=== PATIENT | male | born 1965 | race Two or more races ===

== ENCOUNTER 2024-02-01 15:10 | Inpatient (IN) | payer OTHER ==
[~2024-02-01] VITALS: Ht 180.3 cm; Wt 16.6 kg
--- NOTE | 2024-02-01 16:25 | ED.PDOC ---
SOB-HPI HPI Comments HPI: Poor Historian. 58-year-old male presents to emergency department for multiple complaints unclear. He had an episode of chest pain and shortness of breath this morning that has resolved prior to my evaluation. He also states he has been having nausea and vomiting and brown diarrhea for the last six days. 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 He states that he was dropped off by the staff from that facility for further evaluation. He states that he was first seen at urgent care today and was given loratadine and Tylenol and fluids and was discharged home. After patient's picked up his medication he started feeling some chest pain and shortness of breath and that is why he came to the ER. Patient does not know his past medical history or past surgical history. Contain denies any chest pain or shortness of breath with The patient stated that he had a stroke, I reviewed some of the medical chart he had from [facility] with the hospital where he had CT scans and MRIs to rule out stroke and there was no CVA confirmed on the reports. Patient is seen ambulating independently numerous times in the lobby without any assistance or abnormal gait. Later the patient mentioned that he has been having unsteady gait on his left side that is making him fall frequently in the last week. Initial Vital Signs: Temp : 99.2 F BP: 137/75 HR: 85 RR: 16 SpO2: 95% Past Medcial History: [place]roke, [place], possibly congestive heart failure, patient is on some type of blood thinners. Seizure chronic left-sided numbness and tingling Past Surgical History: REVIEW OF SYSTEMS: CONSTITUTIONAL: Denies acute: fever, diaphoresis, chills, HEAD: Denies acute: headache, photophobia Eyes: Denies acute: Double vision, vision loss, eye pain, eye discharge. EARS: Denies acute: tinnitus, hearing loss, ear discharge, ear pain, THROAT: Denies acute: sore throat, swelling, difficulty swallowing , pain with swallowing, change in voice. NECK: Denies acute: neck pain, neck swelling, stiff neck. HEART: Denies acute : chest pain, palpitations, LUNGS: Denies acute: SOB, wheezing, cough, hemoptysis ABDOMEN: Denies acute: abdominal pain, melena , hematemesis, SKIN: Denies acute: rash, redness, lesions, itchiness. EXTREMITIES: Denies acute: calf pain, numbness, tingling, weakness, denies pain in extremity. Denies acute: Low back pain. Neuro: Denies acute: focal neurological deficit, motor or sensory focal neurological deficit, tremors, seizure like activity, confusion, dizziness, change in mental status, loss of bowel or bladder function, cauda equina like symptoms. : Denies acute: dysuria, hematuria, flank pain, increase in urinary frequency. PSYCH: Denies acute: hallucination, suicidal ideation, homicidal ideation. PHYSICAL EXAM: General: no acute distress, awake and alert. Head: normocephalic, atraumatic. Neck: supple, trachea is midline, no swelling. Throat: Normal phonation. Eyes:, no erythema, no purulent discharge, no proptosis, no icterus. Heart: regular rate, regular rhythm, no significant murmur appreciated. Lungs: no apparent respiratory distress, Able to speak in full sentences. No wheezing, no rhonchi, no crackles. No stridors Clear to auscultation bilaterally. Abdomen: non tender to palpation, non distended, soft, no guarding, no rebound, + bowel sounds. Neuro: Awake, Alert, oriented to name, self, situation, follows commands GCS=15. Speech is normal. Skin: no petechia, no purpura, no cyanosis, non-pale, not jaundice. Lower extremities: --no - Pitting edema no deformity, no focal swelling, no calf TTP. Makes eye contact. moves all four extremities. Face: no apparent facial droop. Ambulating in the ED independently. Time Seen by MD: 15:37 Reviewed notes: Nurses Notes, Medications, Allergies Information Source: Patient X-Ray, Labs, Meds, VS Vital Signs Date Time Temp Pulse Resp B/P (MAP) Pulse Ox O2 Delivery O2 Flow Rate FiO2 02/01/24 16:46 99.2 85 16 137/75 (95) 95 Lab Test 02/01/24 19:00 02/01/24 17:53 02/01/24 16:56 Range/Units Troponin I High Sensitivity 44 41 44 </=54 ng/L Lactic Acid Level 1.9 0.4-2.0 mmol/L White Blood Count 4.0 L 4.4-10.8 10^3/uL Red Blood Count 4.38 L 4.5-5.90 10^6/uL Hemoglobin 13.9 13.5-17.5 g/dL Hematocrit 41.1 41.0-53.0 % Mean Corpuscular Volume 93.9 80.0-100.0 fL Mean Corpuscular Hemoglobin 31.7 28.0-32.0 pg Mean Corpuscular Hemoglobin Concent 33.8 32.0-36.0 g/dL Red Cell Distribution Width 13.4 11.8-14.3 % Platelet Count 153 140-450 10^3/uL Mean Platelet Volume 10.4 6.9-10.8 fL Neutrophils (%) (Auto) 66.6 37.0-80.0 % Lymphocytes (%) (Auto) 18.3 10.0-50.0 % Monocytes (%) (Auto) 13.6 H 0.0-12.0 % Eosinophils (%) (Auto) 0.7 0.0-7.0 % Basophils (%) (Auto) 0.8 0.0-2.0 % Neutrophils # (Auto) 2.7 1.6-8.6 10 ^3/uL Lymphocytes # (Auto) 0.7 0.4-5.4 10 ^3/uL Monocytes # (Auto) 0.5 0-1.3 10 ^3/uL Eosinophils # (Auto) 0 0-0.8 10 ^3/uL Basophils # (Auto) 0 0-0.2 10 ^3/uL Nucleated Red Blood Cells 0.1 % Sodium Level 138 136-145 mmol/L Potassium Level 3.5 3.5-5.1 mmol/L Chloride Level 104 98-107 mmol/L Carbon Dioxide Level 26 20-31 mmol/L Anion Gap 8 5-15 Blood Urea Nitrogen 25 H 9-23 mg/dL Creatinine 1.30 0.700-1.30 mg/dL Glomerular Filtration Rate Calc 64 >90 mL/min BUN/Creatinine Ratio 19.2 10.0-20.0 Serum Glucose 89 74-106 mg/dL Calcium Level 9.5 8.7-10.4 mg/dL Magnesium Level 1.7 1.6-2.6 mg/dL Total Bilirubin 0.4 0.2-1.0 mg/dL Aspartate Amino Transferase (AST) 52 H 13-40 U/L Alanine Aminotransferase (ALT) 28 7-40 U/L Alkaline Phosphatase 90 46-116 U/L B-Type Natriuretic Peptide 98.10 0-100 pg/mL Total Protein 7.0 5.7-8.2 g/dL Albumin 4.5 3.2-4.8 g/dL Lipase 70 H 12-53 U/L Plasma/Serum Blood Alcohol < 3.0 <10 mg/dL [place] [id number] Ph: [phone] DIAGNOSTIC IMAGING Diagnostic Imaging Report : [id number] Signed PATIENT: DAGMAR DEL CID ACCT: [id number] UNIT: [id number] : 1965 LOC: ER ROOM / BED: / AGE / SEX: 58 / M ADM STATUS: REG ER SERVICE 1609 ORDERING PHYSICIAN: CHETAN FULTON DO PROCEDURE(s): CXRP - CHEST PORTABLE REASON: sob ORDER NUMBER(s): [id number], ACCESSION NUMBER(s): [id number] CHEST RADIOGRAPH Indication: sob Technique: Single frontal view of the chest was obtained Comparison: None FINDINGS: Lines and Tubes: None Lungs: No focal consolidation. Pleura: No effusion. No pneumothorax. Cardiomediastinal contours: Unremarkable Bones: No acute osseous abnormality. IMPRESSION: No acute cardiopulmonary disease. ATED BY: BINH RAMSAY MD DICTATED DATE/TIME: 02/01/241742 SIGNED BY: BINH RAMSAY MD SIGNED DATE/TIME: 02/01/241742 CC: [place] [id number] Ph: [phone] DIAGNOSTIC IMAGING Diagnostic Imaging Report : [id number] Signed PATIENT: DAGMAR DEL CID ACCT: [id number] UNIT: [id number] : 1965 LOC: ER ROOM / BED: / AGE / SEX: 58 / M ADM STATUS: REG ER SERVICE 1618 ORDERING PHYSICIAN: CHETAN FULTON DO PROCEDURE(s): ABPL - CT AB PEL WO CON-NO ORAL OR IV REASON: n/v ORDER NUMBER(s): [id number], ACCESSION NUMBER(s): [id number] Exam: CT CT AB PEL WO CON-NO ORAL OR IV History: n/v Comparison Study: None TECHNIQUE: Multidetector CT of the abdomen and pelvis was performed from lung bases to pubic symphysis. Imaging was performed without IV contrast. Axial, coronal, and sagittal multiplanar reformats were obtained from the axial data set by the technologist. RADIATION DOSE: DLP 1136.2 mGy.cm; CTDI vol 20.83 mGy. Findings: Limited evaluation given noncontrast technique. Lungs: The lung bases are clear. Heart: Cardiomegaly. Liver: Unremarkable. Gallbladder: Unremarkable. Spleen: Unremarkable Pancreas: Unremarkable Adrenals: Unremarkable Kidneys: Right renal cysts. GI tract: Unremarkable. Normal appendix. : Unremarkable. Vasculature: Unremarkable Lymphadenopathy: Absent Peritoneum: No ascites Musculoskeletal: Moderate multilevel degenerative changes of the thoracolumbar spine Soft tissues: Unremarkable Impression: 1. Limited evaluation given noncontrast technique. 2. No acute abdominopelvic abnormalities. 3. Cardiomegaly. ATED BY: CINTHIA NEWBY DO DICTATED DATE/TIME: 02/01/241748 SIGNED BY: CINTHIA NEWBY DO SIGNED DATE/TIME: 02/01/241748 CC: [place] [id number] Ph: [phone] DIAGNOSTIC IMAGING Diagnostic Imaging Report : [id number] Signed PATIENT: DAGMAR DEL CID ACCT: [id number] UNIT: [id number] : 1965 LOC: ER ROOM / BED: / AGE / SEX: 58 / M ADM STATUS: REG ER SERVICE 1636 ORDERING PHYSICIAN: CHETAN FULTON DO PROCEDURE(s): HWOCT - HEAD WITHOUT CONTRAST REASON: confused ORDER NUMBER(s): [id number], ACCESSION NUMBER(s): [id number] EXAM: CT HEAD WITHOUT CONTRAST INDICATION: confused TECHNIQUE: CT of the head without intravenous contrast. Radiation Dose Information: CT Dose: CTDI volume is 57.77 mGy. Dose-length product is 1022.89 mGy*cm The dose indicators for CT are the volume Computed Tomography (CT) Dose Index (CTDIvol) and the Dose Length Product (DLP), and are measured in units of mGy and mGy-cm, respectively. These indicators are not patient dose, but values generated from the CT scanner acquisition factors. The report includes radiation exposure data for exposures received during this examination. COMPARISON: None FINDINGS: There is no evidence of acute intracranial hemorrhage, extra-axial collection, mass effect, midline shift, herniation or hydrocephalus. The ventricles, sulci and cisterns are age appropriate. The maxwell-white differentiation is intact. Patchy periventricular and subcortical white matter hypoattenuation is nonspecific but may be related to small vessel ischemic disease. Encephalomalacia right frontal lobe and left parietal lobe. The visualized paranasal sinuses and mastoid air cells are clear. The surrounding soft tissues and osseous structures are unremarkable. IMPRESSION: No acute intracranial abnormality. ATED BY: BINH RAMSAY MD DICTATED DATE/TIME: 02/01/241742 SIGNED BY: BINH RAMSAY MD SIGNED DATE/TIME: 02/01/241742 CC: Time of 1ST Reevaluation: 19:39 (We have received multiple conflicting reports regarding the history of present illness and ER presentation. Still awaiting social worker aide for evaluation and placement. Patient is sitting in the lobby tolerating food intake well. No acute distress.) Reevaluation 1ST: Improved Time of 2ND Reevaluation: 22:19 (The charge nurse Mata communicated in length with the housekeeping manager Christian regarding this patient and verified this patient is either confused or malingering. The information in the note that accompanied him is falls. aircraft worker was consulted for placement and evaluation and possibly psychiatric evaluation. Patient denies any homicidal or suicidal ideation or hallucinations. Patient is resting comfortably in the lobby ambulating independently tolerating p.o. intake. Patient in no acute distress.) Patient Education/Counseling: Diagnosis, Treatment Family Education/Counseling: No Family Present Assigned to Change of Shift?: Yes Departure 1 Departure Time of Disposition: 18:00 Impression: Primary Impression: Homelessness Additional Impressions: Multiple complaints Confusion Unsteady gait Diarrhea Disposition: ADMITTED INPATIENT Admit to: Tele Condition: Guarded Discharged With: Self I personally scribed for CHETAN FULTON DO ([email or web address]) on 02/01/24 at 19:08. Electronically submitted by Pia Davila ([email or web address]). I personally scribed for CHETAN FULTON DO ([email or web address]) on 02/01/24 at 19:11. Electronically submitted by Pia Davila ([email or web address]). I personally scribed for CHETAN FULTON DO ([email or web address]) on 02/01/24 at 20:42. Electronically submitted by Pia Davila ([email or web address]). I personally scribed for CHETAN FULTON DO ([email or web address]) on 02/01/24 at 21:06. Electronically submitted by Pia Davila ([email or web address]). CHETAN FULTON DO Feb 01, 2024 16:25
[2024-02-01 17:19] LABS: Basophils # (auto) 0 10 ^3/uL (0-0.2); Basophils % (auto) 0.8 % (0.0-2.0); Eosinophils # (auto) 0 10 ^3/uL (0-0.8); Eosinophils % (auto) 0.7 % (0.0-7.0); Hematocrit 41.1 % (41.0-53.0); Hemoglobin 13.9 g/dL (13.5-17.5); Lymphocytes # (auto) 0.7 10 ^3/uL (0.4-5.4); Lymphocytes % (auto) 18.3 % (10.0-50.0); Mean Corpuscular Hemoglobin 31.7 pg (28.0-32.0); Mean Corpuscular Hgb Conc. 33.8 g/dL (32.0-36.0); Mean Corpuscular Volume 93.9 fL (80.0-100.0); Monocytes # (auto) 0.5 10 ^3/uL (0-1.3); Monocytes % (auto) 13.6 % (0.0-12.0); Neutrophils # (auto) 2.7 10 ^3/uL (1.6-8.6); Neutrophils % (auto) 66.6 % (37.0-80.0); Nucleated Red Blood Cells % 0.1 %; Platelet Count (auto) 153 10^3/uL (140-450); Red Blood Cells 4.38 10^6/uL (4.5-5.90); Red Cell Distribution Width 13.4 % (11.8-14.3)
[2024-02-01 17:37] LABS: Alanine Aminotransferase 28 U/L (7-40); Albumin 4.5 g/dL (3.2-4.8); Alkaline Phosphatase 90 U/L (46-116); Anion Gap 8 (5-15); BUN/Creatinine Ratio 19.2 (10.0-20.0); Bilirubin, Total 0.4 mg/dL (0.2-1.0); Calcium 9.5 mg/dL (8.7-10.4); Carbon Dioxide 26 mmol/L (20-31); Chloride 104 mmol/L (98-107); Glucose 89 mg/dL (74-106); Potassium 3.5 mmol/L (3.5-5.1); Sodium 138 mmol/L (136-145)
--- NOTE | 2024-02-01 17:45 | DVH ---
CHEST RADIOGRAPH Indication: sob Technique: Single frontal view of the chest was obtained Comparison: None FINDINGS: Lines and Tubes: None Lungs: No focal consolidation. Pleura: No effusion. No pneumothorax. Cardiomediastinal contours: Unremarkable Bones: No acute osseous abnormality. IMPRESSION: No acute cardiopulmonary disease.
[2024-02-01 17:46] LABS: Magnesium 1.7 mg/dL (1.6-2.6)
--- NOTE | 2024-02-01 17:46 | DVH ---
EXAM: CT HEAD WITHOUT CONTRAST INDICATION: confused TECHNIQUE: CT of the head without intravenous contrast. Radiation Dose Information: CT Dose: CTDI volume is 57.77 mGy. Dose-length product is 1022.89 mGy*cm The dose indicators for CT are the volume Computed Tomography (CT) Dose Index (CTDIvol) and the Dose Length Product (DLP), and are measured in units of mGy and mGy-cm, respectively. These indicators are not patient dose, but values generated from the CT scanner acquisition factors. The report includes radiation exposure data for exposures received during this examination. COMPARISON: None FINDINGS: There is no evidence of acute intracranial hemorrhage, extra-axial collection, mass effect, midline s hift, herniation or hydrocephalus. The ventricles, sulci and cisterns are age appropriate. The maxwell-white differentiation is intact. Patchy periventricular and subcortical white matter hypoattenuation is nonspecific but may be related to small vessel ischemic disease. Encephalomalacia right frontal lobe and left parietal lobe. The visualized paranasal sinuses and mastoid air cells are clear. The surrounding soft tissues and osseous structures are unremarkable. IMPRESSION: No acute intracranial abnormality.
[2024-02-01 17:49] LABS: Aspartate Aminotransferase 52 U/L (13-40); Blood Alcohol < 3.0 mg/dL (<10); Blood Urea Nitrogen 25 mg/dL (9-23)
--- NOTE | 2024-02-01 17:52 | DVH ---
Exam: CT CT AB PEL WO CON-NO ORAL OR IV History: n/v Comparison Study: None TECHNIQUE: Multidetector CT of the abdomen and pelvis was performed from lung bases to pubic symphysi s. Imaging was performed without IV contrast. Axial, coronal, and sagittal multiplanar reformats were obtained from the axial data set by the technologist. RADIATION DOSE: DLP 1136.2 mGy.cm; CTDI vol 20.83 mGy. Findings: Limited evaluation given noncontrast technique. Lungs: The lung bases are clear. Heart: Cardiomegaly. Liver: Unremarkable. Gallbladder: Unremarkable. Spleen: Unremarkable Pancreas: Unremarkable Adrenals: Unremarkable Kidneys: Right renal cysts. GI tract: Unremarkable. Normal appendix. : Unremarkable. Vasculature: Unremarkable Lymphadenopathy: Absent Peritoneum: No ascites Musculoskeletal: Moderate multilevel degenerative changes of the thoracolumbar spine Soft tissues: Unremarkable Impression: 1. Limited evaluation given noncontrast technique. 2. No acute abdominopelvic abnormalities. 3. Cardiomegaly.
[2024-02-01 18:32] LABS: Lipase 70 U/L (12-53)
[2024-02-01 22:58] LABS: Urine Bacteria None Seen /hpf (None Seen)
[2024-02-01 23:10] LABS: Urine Blood Negative /uL (Negative); Urine Clarity Clear (Clear); Urine Color Yellow (Yellow); Urine Mucus FEW (None Seen); Urine Protein, UAD 1+ (Negative); Urine Specific Gravity 1.031 (1.001-1.035); Urine Squamous Epithelial Cell None Seen /hpf (<5); Urine Urobilinogen 2 mg/dL (Negative); Urine WBC 2 /hpf (0 - 3); Urine pH 5.5 (5.0-9.0)
[2024-02-01 23:19] LABS: Cannabinoid Screen, Urine Pos (NEGATIVE)
[2024-02-01 23:20] LABS: Amphetamine Screen, Urine Neg (NEGATIVE); Barbiturate Scree,Urine Neg (NEGATIVE); Benzodiazephine Screen, Urine Neg (NEGATIVE); Cocaine Screen, Urine Neg (NEGATIVE); Opiate Scree,Urine Neg (NEGATIVE); Phencyclidine Screen, Urine Neg (NEGATIVE)
[2024-02-01 23:25] LABS: COVID19 ANTIGEN SOFIA FIA NEGATIVE (NEGATIVE)
[2024-02-01 23:27] LABS: Rapid Influenza A Positive (Negative); Rapid Influenza B Negative (Negative)
[2024-02-02 06:46] VITALS: PULSE 76; RESP 16; O2SAT 96
[2024-02-02] MEDS ORDERED: MORPHINE SULFATE INJ 2 MG/ml SYRG IV PRN (07:45)
[2024-02-02] MEDS ORDERED: ONDANSETRON HCL 4 MG/2 ML VIAL IV PRN (07:45)
--- NOTE | 2024-02-02 07:55 | DVHHP2 ---
History of Present Illness History of Present Illness 58yo M with PMHx HFrEF, homelessness p/w diarrhea x 4-5 days. poor historian, visited [facility] urgent care for similar complaint, was dc with imodium and tylenol. returning to ED with ongoing complains and ROS for weakness. patient is homeless. Review of Systems Review of Systems per HPI Allergies: Coded Allergies: No Known Drug Allergy (Verified Allergy, Unknown, 02/01/24) Medications Current Medications Medications Dose Ordered Sig/Marleny Route Start Time Stop Time Status Last Admin Dose Admin Acetaminophen/ Hydrocodone Bitart 1 tab Q4HP PRN PO 02/02/24 07:45 UNV Ondansetron HCl 4 mg Q4HP PRN IV 02/02/24 07:45 UNV Enoxaparin Sodium 40 mg DAILY SC 02/02/24 10:00 UNV Acetaminophen 650 mg Q6HP PRN PO 02/02/24 07:45 UNV Morphine Sulfate 2 mg Q4HPRN PRN IV 02/02/24 07:45 UNV Apixaban 5 mg BID PO 02/02/24 10:00 UNV Midodrine 10 mg TID@0600,1200,1800 PO 02/02/24 12:00 UNV Pantoprazole Sodium 40 mg DAILY@0600 PO 02/03/24 06:00 UNV Sacubitril/ Valsartan 2 tab BID PO 02/02/24 10:00 UNV Spironolactone 25 mg DAILY PO 02/02/24 10:00 UNV Exam Vital Signs Vital Signs Date Time Temp Pulse Resp B/P (MAP) Pulse Ox O2 Delivery O2 Flow Rate FiO2 02/02/24 06:46 76 16 96 Room Air* 0 21 02/02/24 06:46 97.6 105/63 (77) 97.6 Exam GEN: Healthy appearing, well-developed, NAD. AAO x3 HEENT: NC/AT; dry mucous membranes CV: Distant heart sounds LUNGS: bibasilar rales ABD: Soft, NT/ND, NBS, no masses or organomegaly. EXT: skin Warm, well perfused. no rashes. No clubbing, cyanosis, or edema. NEURO: Ambulating with no limitations. No focal deficits. Labs/Xrays Labs Test 02/01/24 22:50 02/01/24 22:44 02/01/24 19:00 02/01/24 17:53 Range/Units Influenza Type A Antigen Positive Negative Influenza Type B Antigen Negative Negative SARS-CoV-2 Antigen (Rapid) Negative NEGATIVE Urine Color Yellow Yellow Urine Clarity Clear Clear Urine pH 5.5 5.0-9.0 Urine Specific [place] 1.031 1.001-1.035 Urine Protein 1+ H Negative Urine Ketones Trace Negative Urine Blood Negative Negative /uL Urine Nitrite Negative Negative Urine Bilirubin Negative Negative Urine Urobilinogen 2 H Negative mg/dL Urine Leukocyte Esterase Negative Negative /uL Urine RBC 2 0 - 3 /hpf Urine WBC 2 0 - 3 /hpf Urine Squamous Epithelial Cells None seen <5 /hpf Urine Bacteria None seen None Seen /hpf Urine Mucus Few None Seen Urine Glucose Normal Normal mg/dL Urine Opiates Screen Neg NEGATIVE Urine Fentanyl Screen Neg NEGATIVE Urine Barbiturates Screen Neg NEGATIVE Urine Phencyclidine Screen Neg NEGATIVE Urine Amphetamines Screen Neg NEGATIVE Urine Benzodiazepines Screen Neg NEGATIVE Urine Cocaine Screen Neg NEGATIVE Urine Cannabinoids Screen Pos NEGATIVE Troponin I High Sensitivity 44 </=54 ng/L Lactic Acid Level 1.9 0.4-2.0 mmol/L Test 02/01/24 16:56 Range/Units White Blood Count 4.0 L 4.4-10.8 10^3/uL Red Blood Count 4.38 L 4.5-5.90 10^6/uL Hemoglobin 13.9 13.5-17.5 g/dL Hematocrit 41.1 41.0-53.0 % Mean Corpuscular Volume 93.9 80.0-100.0 fL Mean Corpuscular Hemoglobin 31.7 28.0-32.0 pg Mean Corpuscular Hemoglobin Concent 33.8 32.0-36.0 g/dL Red Cell Distribution Width 13.4 11.8-14.3 % Platelet Count 153 140-450 10^3/uL Mean Platelet Volume 10.4 6.9-10.8 fL Neutrophils (%) (Auto) 66.6 37.0-80.0 % Lymphocytes (%) (Auto) 18.3 10.0-50.0 % Monocytes (%) (Auto) 13.6 H 0.0-12.0 % Eosinophils (%) (Auto) 0.7 0.0-7.0 % Basophils (%) (Auto) 0.8 0.0-2.0 % Neutrophils # (Auto) 2.7 1.6-8.6 10 ^3/uL Lymphocytes # (Auto) 0.7 0.4-5.4 10 ^3/uL Monocytes # (Auto) 0.5 0-1.3 10 ^3/uL Eosinophils # (Auto) 0 0-0.8 10 ^3/uL Basophils # (Auto) 0 0-0.2 10 ^3/uL Nucleated Red Blood Cells 0.1 % Sodium Level 138 136-145 mmol/L Potassium Level 3.5 3.5-5.1 mmol/L Chloride Level 104 98-107 mmol/L Carbon Dioxide Level 26 20-31 mmol/L Anion Gap 8 5-15 Blood Urea Nitrogen 25 H 9-23 mg/dL Creatinine 1.30 0.700-1.30 mg/dL Glomerular Filtration Rate Calc 64 >90 mL/min BUN/Creatinine Ratio 19.2 10.0-20.0 Serum Glucose 89 74-106 mg/dL Calcium Level 9.5 8.7-10.4 mg/dL Magnesium Level 1.7 1.6-2.6 mg/dL Total Bilirubin 0.4 0.2-1.0 mg/dL Aspartate Amino Transferase (AST) 52 H 13-40 U/L Alanine Aminotransferase (ALT) 28 7-40 U/L Alkaline Phosphatase 90 46-116 U/L B-Type Natriuretic Peptide 98.10 0-100 pg/mL Total Protein 7.0 5.7-8.2 g/dL Albumin 4.5 3.2-4.8 g/dL Lipase 70 H 12-53 U/L Plasma/Serum Blood Alcohol < 3.0 <10 mg/dL Assessment/Plan Assessment/Plan influenza infection, acute viral syndrome - influenza A + intractable diarrhea IVVD dehydration LEXI due to VMN - Cr 1.3 (prior wnl), sg >1.030 - stool studies - fluids - imodium if stool studies negative - f/u labs for Cr cardiac diet - no gi ppx lovenox medsurg full code Plan discussed with: Patient My Orders Orders - EDMUNDO CHARLES MD Procedure Category Date Status Time Admit ADMIT 02/02/24 Transmitted 07:40 Code Status CODE 02/02/24 Transmitted 07:40 Hydrocodone-Acet PHA 02/02/24 Logged 5/325mg Tab ([place] 07:45 Ondansetron Hcl PHA 02/02/24 Logged (Zofran) 07:45 Enoxaparin Sodium PHA 02/02/24 Logged (Lovenox) 10:00 Complete Blood Count LAB 02/03/24 Verified 04:00 Comprehensive LAB 02/03/24 Verified Metabolic Panel 04:00 Cardiac DIET 02/02/24 Transmitted Diet-2gna,Lofat,Lochol Breakfast Acetaminophen Tablet PHA 02/02/24 Logged (Tylenol Tablet) 07:45 Bedrest With Bathroom MODESTA 02/02/24 In Process Privileg 07:40 Morphine Sulfate PHA 02/02/24 Logged Injection 07:45 Apixaban (Eliquis) PHA 02/02/24 Logged 10:00 Aspirin Tablet PHA 02/02/24 Logged 07:45 Atorvastatin (Lipitor) PHA 02/02/24 Logged 07:45 Olanzapine Tablet PHA 02/02/24 Logged (Zyprexa Tablet) 07:45 Midodrine Tablet PHA 02/02/24 Logged (Proamatine Tablet) 12:00 Pantoprazole Tablet PHA 02/03/24 Logged (Protonix Tablet) 06:00 Sacubitril-Valsartan PHA 02/02/24 Logged (Entresto 24-26 Mg 10:00 Spironolactone PHA 02/02/24 Logged (Aldactone) 10:00 Lactated Ringers Lr PHA 02/02/24 Transmitted 08:00 Date of Service: Feb 02, 2024 Billing Provider: EDMUNDO CHARLES MD Common Visit Codes: [id number] INP/OBS CARE (HIGH) EDMUNDO CHARLES MD Feb 02, 2024 07:55
[2024-02-02] MEDS: ATORVASTATIN 20 MG TAB PO ONE (08:25)
[2024-02-02] MEDS: OLANZapine 5 MG TAB PO ONE (08:25)
[2024-02-02] MEDS: ASPirin 81 mg TAB PO ONE (08:25)
[2024-02-02 08:30] VITALS: RESP 17
[2024-02-02] MEDS: LACTATED RINGER'S 1,000 ML IV ONE (08:38)
[2024-02-02] MEDS: OSELTAMIVIR 75 MG CAP PO SCH (10:00)
[2024-02-02] MEDS ORDERED: APIXABAN 5 MG TAB PO SCH (10:00)
[2024-02-02] MEDS: SPIRONOLACTONE 25 MG TAB PO SCH (10:12)
[2024-02-02 11:33] LABS: Magnesium 1.8 mg/dL (1.6-2.6)
--- NOTE | 2024-02-02 11:52 | DVHPNRES ---
Progress Note Date Seen: Feb 02, 2024 Resident Creating Document: PHILIP CORREIA RESIDENT Medical Necessity Reason Pt with a Central, PICC or Fol: No Subjective Review of Systems The patient is a 58-year-old male with a past medical history of heart failure with reduced ejection fraction (HFrEF) who presents with abdominal pain and associated symptoms. The abdominal pain began 6 days ago, is described as mild to moderate in intensity (3/10), and is associated with nausea and vomiting. The patient reports noticing blood in the vomit and experiencing dry mouth but denies diarrhea or other symptoms. He is a poor historian but mentions being admitted to another hospital 2 weeks ago for shortness of breath. In the ED, initial laboratory tests revealed an elevated lipase level, raising concern for pancreatitis. The patient was started on intravenous hydration with lactated Ringers solution and received morphine for pain control.The patient is currently homeless. Influenza test brandie back positive for type A influenza , therefore the patient was started on oseltamivir 75 mg PO. Past Medical History: Heart failure with reduced ejection fraction (HFrEF) (per patient) History of homelessness Past Surgical History: No reported history. Family History: Non-contributory. Social History: Homeless. Denies alcohol No known smoking history. smokes marijuana occasionally Allergies: No known drug allergies (NKDA). Review of systems. Constitutional: Poor historian, Disheveled appearance, obese patient in mild acute distress . Eyes: No: Pain, Vision change, Conjunctivae inflammation, Eyelid inflammation, Other, Redness ENT: No: Ear pain, Ear discharge, Nose pain, Nose discharge, Nose congestion, Mouth pain, Mouth swelling, Throat pain, Throat swelling, Other Respiratory: Cough present, Shortness of breath, improving No Wheezing, Hemoptysis, Pleuritic Pain, Sputum, Wheezing, Other Cardiovascular: No: Chest Pain, Palpitations, Orthopnea, Paroxysmal Noc. Dyspnea, Edema, Lt Headedness, Other Gastrointestinal: Mild abdominal pain, he reports nausea and vomiting Musculoskeletal: No: other, neck pain, shoulder pain, arm pain, back pain, hand pain, leg pain, foot pain Neurological:; No: Weakness, Numbness, Incoordination, Change in speech, Confusion, Seizures Patient reports: No new complaints Changes from previous H/P or p: No Changes Objective vital signs Vital Sign Date Time Temp Pulse Resp B/P (MAP) Pulse Ox O2 Delivery O2 Flow Rate FiO2 02/02/24 10:19 80 18 119/79 (92) 96 02/02/24 08:30 Room Air* 0 21 02/02/24 06:46 97.6 97.6 medications Current Medications Medications Dose Ordered Sig/Marleny Route Start Time Stop Time Status Last Admin Dose Admin Acetaminophen/ Hydrocodone Bitart 1 tab Q4HP PRN PO 02/02/24 07:45 Ondansetron HCl 4 mg Q4HP PRN IV 02/02/24 07:45 Enoxaparin Sodium 40 mg DAILY SC 02/02/24 10:00 UNV Acetaminophen 650 mg Q6HP PRN PO 02/02/24 07:45 Morphine Sulfate 2 mg Q4HPRN PRN IV 02/02/24 07:45 Apixaban 5 mg BID PO 02/02/24 10:00 UNV Midodrine 10 mg TID@0600,1200,1800 PO 02/02/24 12:00 Pantoprazole Sodium 40 mg DAILY@0600 PO 02/03/24 06:00 Sacubitril/ Valsartan 2 tab BID PO 02/02/24 10:00 Spironolactone 25 mg DAILY PO 02/02/24 10:00 02/02/24 10:12 25 MG Oseltamivir Phosphate 75 mg Q12HR PO 02/02/24 10:00 02/07/24 09:59 02/02/24 10:25 75 MG Examination Examination General Appearance: Alert, Oriented X3, Cooperative, mild acute distress Respiratory: Clear to auscultation, Normal air movement Cardiovascular: Regular rate, Normal S1, Normal S2 Abdominal: Normal bowel sounds nontender nondistended Extremities: No cyanosis, No edema, Normal pulses, No tenderness/swelling Skin: Some excoriations in the lower extremities and arms. Neuro: Normal gait, Normal speech, Strength at 5/5 X4 ext, Normal tone, Sensation intact, Cranial nerves 3-12 NL, Reflexes 2+ Psych/Mental Status: Mental status NL, Mood NL laboratory and microbiology Laboratory Tests 02/01/24 16:56 Test 02/01/24 16:56 Range/Units Serum Glucose 89 74-106 mg/dL Problem List/Assessment/Plan Problem List/Assessment/Plan Acute abdominal painlikely due to ?gastroenteritis acute gastritis? hematochezia, hematemesis (per patient) -lipase levels 70 -lactate Ringer IV -morphine for pain control -CT scan of the abdomen was unremarkable -stool occult blood, pending influenza infection, acute viral syndrome - influenza A + -oseltamivir 75 mg p.o. Dehydration likely due to intractable diarrhea -lactate Ringer -CT scan of the abdomen was unremarkable - ondansetron 4 mg p.r.n. IV LEXI due to VMN - Cr 1.3 likely due to dehydration -as above Prediabetes hemoglobin A1c 6.2 -Lifestyle modification counseling and changes in dietary habits. Homelessness -transition social worker on board History of heart failure reduced ejection fraction (per patient) Mild hypotension -no signs of fluid overload based on recent chest x-rays -Echocardiogram is pending Case discussed with Dr. Brizuela Goals of care discussed with the patient for 29 minutes Code status: Full code Plan discussed with: Patient My Orders My Orders Orders - PHILIP CORREIA Procedure Category Date Status Time Oseltamivir 75mg PHA 02/02/24 In Process Capsule (Tamiflu 75mg 10:00 Mrsa Screen CARLOS 02/02/24 Uncollected 09:53 Vitamin B12 LAB 02/02/24 In Process 09:53 Echo 2d Mode Cardiac US 02/02/24 Logged DOP 09:53 Date of Service: Feb 02, 2024 Billing Provider: HALI BRIZUELA MD Common Visit Codes: [id number] INP/OBS CARE(HIGH) Secondary Visit Codes: [id number] CARE PLAN 30 MINUTES PHILIP CORREIA RESIDENT Feb 02, 2024 11:52 HALI BRIZUELA MD Feb 04, 2024 20:40
[2024-02-02] MEDS: MIDODRINE HCL 10 MG TAB PO SCH (12:00)
[2024-02-02] MEDS: SACUBITRIL-VALSARTAN 24mg/26mg TAB PO SCH (13:22)
[2024-02-02] MEDS: ENOXAPARIN SOD 40 MG/0.4 ML SYRINGE SC SCH (13:33)
[2024-02-02 15:51] LABS: Chloride 103 mmol/L (98-107)
[2024-02-02 15:52] LABS: Anion Gap 8 (5-15); Calcium 9.4 mg/dL (8.7-10.4); Carbon Dioxide 25 mmol/L (20-31)
[2024-02-02 15:55] LABS: Potassium 3.4 mmol/L (3.5-5.1); Sodium 136 mmol/L (136-145)
[2024-02-02 15:57] LABS: Basophils # (auto) 0 10 ^3/uL (0-0.2); Basophils % (auto) 0.3 % (0.0-2.0); Eosinophils # (auto) 0 10 ^3/uL (0-0.8); Eosinophils % (auto) 1.2 % (0.0-7.0); Hematocrit 37.6 % (41.0-53.0); Hemoglobin 12.8 g/dL (13.5-17.5); Lymphocytes # (auto) 0.7 10 ^3/uL (0.4-5.4); Lymphocytes % (auto) 20.9 % (10.0-50.0); Mean Corpuscular Hemoglobin 31.7 pg (28.0-32.0); Mean Corpuscular Hgb Conc. 34.1 g/dL (32.0-36.0); Mean Corpuscular Volume 92.7 fL (80.0-100.0); Monocytes # (auto) 0.3 10 ^3/uL (0-1.3); Monocytes % (auto) 9.5 % (0.0-12.0); Neutrophils # (auto) 2.4 10 ^3/uL (1.6-8.6); Neutrophils % (auto) 68.1 % (37.0-80.0); Nucleated Red Blood Cells % 0.1 %; Platelet Count (auto) 122 10^3/uL (140-450); Red Blood Cells 4.05 10^6/uL (4.5-5.90); Red Cell Distribution Width 13.4 % (11.8-14.3); White Blood Cell 3.5 10^3/uL (4.4-10.8)
[2024-02-02 15:57] LABS: BUN/Creatinine Ratio 17.6 (10.0-20.0); Blood Urea Nitrogen 16 mg/dL (9-23); Glucose 100 mg/dL (74-106)
[2024-02-02 18:12] VITALS: BP 97/59; PULSE 96; RESP 18; TEMP 99.8; O2SAT 95
[2024-02-02 21:00] VITALS: BP 93/51; PULSE 101; RESP 17; TEMP 98.1; O2SAT 91
[2024-02-02] MEDS: ACETAMINOPHEN 325 MG TAB PO PRN (21:53)
[2024-02-02 22:53] VITALS: BP 96/53; PULSE 96; RESP 18; TEMP 98.2; O2SAT 95
[2024-02-03] VITALS (8 sets, daily range): BP systolic 87–109; BP diastolic 49–83; PULSE 60–104; RESP 16–19; TEMP 97.5–99.7; O2SAT 89–100
[2024-02-03] MEDS: PANTOPRAZOLE 40 MG TAB PO SCH (05:37)
[2024-02-03 06:51] LABS: Basophils # (auto) 0 10 ^3/uL (0-0.2); Basophils % (auto) 0.3 % (0.0-2.0); Eosinophils # (auto) 0.1 10 ^3/uL (0-0.8); Eosinophils % (auto) 1.9 % (0.0-7.0); Hemoglobin 13.6 g/dL (13.5-17.5); Lymphocytes # (auto) 0.8 10 ^3/uL (0.4-5.4); Lymphocytes % (auto) 21.2 % (10.0-50.0); Mean Corpuscular Hemoglobin 31.3 pg (28.0-32.0); Monocytes # (auto) 0.3 10 ^3/uL (0-1.3); Monocytes % (auto) 8.2 % (0.0-12.0); Neutrophils # (auto) 2.6 10 ^3/uL (1.6-8.6); Neutrophils % (auto) 68.4 % (37.0-80.0); Nucleated Red Blood Cells % 0.2 %; Platelet Count (auto) 124 10^3/uL (140-450); Red Blood Cells 4.34 10^6/uL (4.5-5.90); Red Cell Distribution Width 13.7 % (11.8-14.3); White Blood Cell 3.9 10^3/uL (4.4-10.8)
[2024-02-03 07:07] LABS: Alanine Aminotransferase 18 U/L (7-40); Albumin 3.9 g/dL (3.2-4.8); Alkaline Phosphatase 72 U/L (46-116); Anion Gap 9 (5-15); Aspartate Aminotransferase 29 U/L (13-40); BUN/Creatinine Ratio 17.5 (10.0-20.0); Bilirubin, Total 0.4 mg/dL (0.2-1.0); Blood Urea Nitrogen 14 mg/dL (9-23); Calcium 9.2 mg/dL (8.7-10.4); Carbon Dioxide 24 mmol/L (20-31); Chloride 107 mmol/L (98-107); Glucose 95 mg/dL (74-106); Potassium 3.4 mmol/L (3.5-5.1); Sodium 140 mmol/L (136-145); Total Protein 6.2 g/dL (5.7-8.2)
[2024-02-03] MEDS: LACTATED RINGER'S 1,000 ML IV SCH (10:26)
[2024-02-03] MEDS: POTASSIUM EFFERVESENT TAB 25 MEQ PO ONE (10:26)
--- NOTE | 2024-02-03 12:46 | DVHSR ---
APPROVED REPORT EXAM: Two-dimensional and M-mode echocardiogram with Doppler and color Doppler. Blood Pressure: 97/68 mmHg INDICATION CHF RISK FACTORS Height: 70, Weight: 235 DIMENSIONS LVDd7.7 (3.8-5.7cm)LA (2D)3.8 (1.9-4.0cm)Aortic Root4.1 (2.0-3.7cm) LVDs6.9 (2.5-4.0cm)LA (MM) (1.9-4.0cm)Aortic Cusp Exc1.8 (1.5-2.0cm) EF (%) 20.0 (55-70%)Rt. Atrium4.2 (1.9-4.0cm)Asc. Aorta cm Mitral Valve MitralMitral Stenosis E wave0.48m/sMV Mean GR.mmHg A wave0.64m/sMV Peak GR.9mmHg E/A ratio0.82D MVAcm2 DECEL [id number] 1/2 Cbsk35ly IVRTmsDop MVA2.45cm2 Aortic Valve Aortic ValveAortic Stenosis V10.78m/Dhara Mean GR.6mmHg V21.55m/Dhara Peak GR.10mmHg LVOT Diameter2.5 (1.8-2.4cm)Doppler AVA2.47cm2 Pulmonic Valve V21.08m/s Conclusion Severely dilated left ventricle. Severely reduced left ventricular systolic function estimated eject ion fraction of 20% in a global fashion. There is a grade 1 diastolic dysfunction Normal right ventricular size and dimension. Moderately reduced left ventricular systolic function. Borderline dilated right and left atria. Normal aortic valve structure function. Normal mitral valve structure. Normal tricuspid valve structure and function. The pulmonary valve is grossly normal. No pericardial effusion.
--- NOTE | 2024-02-03 14:19 | DVHPNRES ---
Progress Note Date Seen: Feb 03, 2024 Resident Creating Document: PHILIP CORREIA RESIDENT Medical Necessity Reason Pt with a Central, PICC or Fol: No Subjective Review of Systems The patient is a 58-year-old male with a past medical history of heart failure with reduced ejection fraction (HFrEF) who presents with abdominal pain and associated symptoms. The abdominal pain began 6 days ago, is described as mild to moderate in intensity (3/10), and is associated with nausea and vomiting. The patient reports noticing blood in the vomit and experiencing dry mouth but denies diarrhea or other symptoms. He is a poor historian but mentions being admitted to another hospital 2 weeks ago for shortness of breath. In the ED, initial laboratory tests revealed an elevated lipase level, raising concern for pancreatitis. The patient was started on intravenous hydration with lactated Ringers solution and received morphine for pain control.The patient is currently homeless. Influenza test brandie back positive for type A influenza , therefore the patient was started on oseltamivir 75 mg PO. Current blood pressure went from 87/64 to 100/49, recent echocardiogram showed 20% ejection fraction for which we are going to order Cardiology consult on this patient. Patient was examined at bedside, he has gait instability but he seems to be more oriented and he is just complaining of coughing, per patient he has friends in [place] where she is planning to move in the following months, psychiatric social worker working on this patient status of homelessness. Recent HR 63 Patient was started on jardiance 10 mg, recent hba1c 6,2 and glucose levels are WNL Past Medical History: Heart failure with reduced ejection fraction (HFrEF) (per patient) History of homelessness Social History: Homeless. Denies alcohol No known smoking history. smokes marijuana occasionally Allergies: No known drug allergies (NKDA). Review of systems. Constitutional: Poor historian, Disheveled appearance, obese patient in mild acute distress . Eyes: No: Pain, Vision change, Conjunctivae inflammation, Eyelid inflammation, Other, Redness ENT: No: Ear pain, Ear discharge, Nose pain, Nose discharge, Nose congestion, Mouth pain, Mouth swelling, Throat pain, Throat swelling, Other Respiratory: Cough present, Shortness of breath, improving No Wheezing, Hemoptysis, Pleuritic Pain, Sputum, Wheezing, Other Cardiovascular: No: Chest Pain, Palpitations, Orthopnea, Paroxysmal Noc. Dyspnea, Edema, Lt Headedness, Other Gastrointestinal: Mild abdominal pain, he reports nausea and vomiting Musculoskeletal: No: other, neck pain, shoulder pain, arm pain, back pain, hand pain, leg pain, foot pain Neurological:; No: Weakness, Numbness, Incoordination, Change in speech, Confusion, Seizures Patient reports: Feels better Objective vital signs Vital Sign Date Time Temp Pulse Resp B/P (MAP) Pulse Ox O2 Delivery O2 Flow Rate FiO2 02/03/24 12:36 98.0 63 16 100/49 (66) 100 98.0 02/03/24 08:30 Room Air* 0 21 Total Intake and Output 02/02/24 02/02/24 02/03/24 15:00 23:00 07:00 Intake Total 350 ml Balance 350 ml medications Current Medications Medications Dose Ordered Sig/Marleny Route Start Time Stop Time Status Last Admin Dose Admin Acetaminophen/ Hydrocodone Bitart 1 tab Q4HP PRN PO 02/02/24 07:45 Ondansetron HCl 4 mg Q4HP PRN IV 02/02/24 07:45 Enoxaparin Sodium 40 mg DAILY SC 02/02/24 10:00 02/03/24 10:25 40 MG Acetaminophen 650 mg Q6HP PRN PO 02/02/24 07:45 02/02/24 21:53 650 MG Morphine Sulfate 2 mg Q4HPRN PRN IV 02/02/24 07:45 Pantoprazole Sodium 40 mg DAILY@0600 PO 02/03/24 06:00 02/03/24 05:37 40 MG Oseltamivir Phosphate 75 mg Q12HR PO 02/02/24 10:00 02/07/24 09:59 02/03/24 10:26 75 MG Lactated Ringer's 1,000 ml @ 125 mls/hr Q8H IV 02/03/24 09:30 02/03/24 10:26 125 MLS/HR Examination EXAMINATION GENERAL APPEARANCE: ALERT, ORIENTED X3, COOPERATIVE, NO ACUTE DISTRESS HEENT: EOMI RESPIRATORY: CLEAR TO AUSCULTATION, NORMAL AIR MOVEMENT CARDIOVASCULAR: REGULAR RATE, NORMAL S1, NORMAL S2 ABDOMINAL: NORMAL BOWEL SOUNDS EXTREMITIES: NO CYANOSIS, NO EDEMA, NORMAL PULSES, NO TENDERNESS/SWELLING SKIN: SOME EXCORIATIONS IN LOWER AND UPPER EXTREMITIES NEURO: UNSTABLE GAIT, NORMAL SPEECH, STRENGTH AT 5/5 X4 EXT, NORMAL TONE, SENSATION INTACT PSYCH/MENTAL STATUS: MENTAL STATUS MILDLY DECREASED laboratory and microbiology Laboratory Tests 02/03/24 05:10 Test 02/03/24 05:10 Range/Units Serum Glucose 95 74-106 mg/dL Problem List/Assessment/Plan Problem List/Assessment/Plan Acute abdominal painlikely due to ?gastroenteritis acute gastritis? hematochezia, hematemesis (per patient) -lipase levels 70 -morphine for pain control -CT scan of the abdomen was unremarkable -stool occult blood, pending Heart failure reduced ejection fraction 20% NYHA III Mild hypotension -Jardiance 10 mg p.o. -cardiology consult -Entresto, spironolactone were held based on recent blood pressure. influenza infection, acute viral syndrome - influenza A + -oseltamivir 75 mg p.o. Dehydration likely due to intractable diarrhea -CT scan of the abdomen was unremarkable - ondansetron 4 mg p.r.n. IV LEXI due to VMN - Cr 1.3 likely due to dehydration -as above Prediabetes hemoglobin A1c 6.2 -Lifestyle modification counseling and changes in dietary habits. Homelessness -psychiatric social worker on board Case discussed with Dr. Brizuela Goals of care discussed with the patient for 29 minutes Code status: Full code Plan discussed with: Patient My Orders My Orders Orders - PHILIP CORREIA Procedure Category Date Status Time Lactated Ringer's PHA 02/03/24 In Process 09:30 Date of Service: Feb 03, 2024 Billing Provider: HALI BRIZUELA MD Common Visit Codes: [id number] INP/OBS CARE(HIGH) PHILIP CORREIA RESIDENT Feb 03, 2024 14:19 HALI BRIZUELA MD Feb 04, 2024 20:40
[2024-02-03] MEDS: HYDROcodone-ACET 5/325MG TAB PO PRN (15:22)
--- NOTE | 2024-02-03 15:40 | DVHCONRES ---
Date Seen: Feb 03, 2024 Resident Creating Document: DALJIT KAY RESIDENT Referring Physician Dr Sun Reason for Consultation CHF History of Present Illness DAGMAR DEL CID is a 58-year-old male with a PMH of CHF presented to the ED with the chief complaints of abdominal pain, nausea and vomiting. Patient reported abdominal started 6 days prior to admission associated with the nausea and vomiting (noticed blood in the vomiting) which started after eating chicken from some restaurant, patient also reported having cough associated with pleuritic chest pain. Patient is poor historian, reported he recently diagnosed as CVA and CHF with reduced ejection fraction 3 months back and on medical therapy but never undergone angiogram or stress test. Patient tested positive for influenza A. On my assessment patient denies diaphoresis, dizziness, shortness of breath, palpitations and other acute associated symptoms. Past Medical History CHF(diagnosed 3 months ago), CVA Past Surgical History Denies Family History: Patient reports no known family medical history. Family History Reviewed, noncontributory Social History Homeless. Occasional marijuana abuse but denies smoking and alcohol. Allergies: Coded Allergies: No Known Drug Allergy (Verified Allergy, Unknown, 02/01/24) Current Medications Current Medications Medications (Trade) Dose Ordered Sig/Marleny Route PRN Reason Start Time Stop Time Status Last Admin Pantoprazole Sodium (Protonix Tablet) 40 mg DAILY@0600 PO 02/03/24 06:00 02/03/24 05:37 Lactated Ringer's 1,000 ml @ 125 mls/hr Q8H IV 02/03/24 09:30 02/03/24 14:15 DC 02/03/24 10:26 Empaglifozin (Jardiance) 10 mg DAILY PO 02/04/24 10:00 Review of Systems Patient seen and examined at the bedside. Patient reported improvement in his symptoms since admission, reported no new complaints. Vital Signs Vital Signs Date Time Temp Pulse Resp B/P (MAP) Pulse Ox O2 Delivery O2 Flow Rate FiO2 02/03/24 12:36 98.0 63 16 100/49 (66) 100 98.0 02/03/24 08:30 Room Air* 0 21 Physical Exam General Appearance: Alert, Oriented X3, Cooperative, mild distress HEENT: Atraumatic, Mucous membranes moist/pink, Respiratory: Clear to auscultation, Normal air movement, decreased sounds Cardiovascular: Regular rate, Normal S1, Normal S2, No murmurs Abdominal: Active bowel sounds, Soft, no distention, mild abdominal tensderness Extremities: No edema, Normal pulses, No tenderness Skin: No Significant rash Neuro: Normal speech, sensorimotor deficits none Psych/Mental Status: Mental status NL, Mood NL Nurse was there as sharperone during examination Labs/Diagnostic Data Labs Test 02/03/24 05:10 02/02/24 10:59 02/01/24 22:50 02/01/24 22:44 Range/Units White Blood Count 3.9 L 4.4-10.8 10^3/uL Red Blood Count 4.34 L 4.5-5.90 10^6/uL Hemoglobin 13.6 13.5-17.5 g/dL Hematocrit 40.0 L 41.0-53.0 % Mean Corpuscular Volume 92.0 80.0-100.0 fL Mean Corpuscular Hemoglobin 31.3 28.0-32.0 pg Mean Corpuscular Hemoglobin Concent 34.0 32.0-36.0 g/dL Red Cell Distribution Width 13.7 11.8-14.3 % Platelet Count 124 L 140-450 10^3/uL Mean Platelet Volume 10.8 6.9-10.8 fL Neutrophils (%) (Auto) 68.4 37.0-80.0 % Lymphocytes (%) (Auto) 21.2 10.0-50.0 % Monocytes (%) (Auto) 8.2 0.0-12.0 % Eosinophils (%) (Auto) 1.9 0.0-7.0 % Basophils (%) (Auto) 0.3 0.0-2.0 % Neutrophils # (Auto) 2.6 1.6-8.6 10 ^3/uL Lymphocytes # (Auto) 0.8 0.4-5.4 10 ^3/uL Monocytes # (Auto) 0.3 0-1.3 10 ^3/uL Eosinophils # (Auto) 0.1 0-0.8 10 ^3/uL Basophils # (Auto) 0 0-0.2 10 ^3/uL Nucleated Red Blood Cells 0.2 % Sodium Level 140 136-145 mmol/L Potassium Level 3.4 L 3.5-5.1 mmol/L Chloride Level 107 98-107 mmol/L Carbon Dioxide Level 24 20-31 mmol/L Anion Gap 9 5-15 Blood Urea Nitrogen 14 9-23 mg/dL Creatinine 0.80 0.700-1.30 mg/dL Glomerular Filtration Rate Calc 104 >90 mL/min BUN/Creatinine Ratio 17.5 10.0-20.0 Serum Glucose 95 74-106 mg/dL Calcium Level 9.2 8.7-10.4 mg/dL Total Bilirubin 0.4 0.2-1.0 mg/dL Aspartate Amino Transferase (AST) 29 13-40 U/L Alanine Aminotransferase (ALT) 18 7-40 U/L Alkaline Phosphatase 72 46-116 U/L Total Protein 6.2 5.7-8.2 g/dL Albumin 3.9 3.2-4.8 g/dL Hemoglobin A1c 6.2 H <5.7 % A1C Magnesium Level 1.8 1.6-2.6 mg/dL Triglycerides Level 116 < 150 mg/dL Cholesterol Level 109 < 200 mg/dL LDL Cholesterol 66 < 100 mg/dL HDL Cholesterol 27 L 40-59 mg/dL Vitamin B12 Level 324 211-911 pg/mL Vitamin D 25-Hydroxy 18.2 L 30.0-100 ng/mL Thyroid Stimulating Hormone (TSH) 1.07 0.55-4.78 uIU/mL Influenza Type A Antigen Positive Negative Influenza Type B Antigen Negative Negative SARS-CoV-2 Antigen (Rapid) Negative NEGATIVE Urine Color Yellow Yellow Urine Clarity Clear Clear Urine pH 5.5 5.0-9.0 Urine Specific [place] 1.031 1.001-1.035 Urine Protein 1+ H Negative Urine Ketones Trace Negative Urine Blood Negative Negative /uL Urine Nitrite Negative Negative Urine Bilirubin Negative Negative Urine Urobilinogen 2 H Negative mg/dL Urine Leukocyte Esterase Negative Negative /uL Urine RBC 2 0 - 3 /hpf Urine WBC 2 0 - 3 /hpf Urine Squamous Epithelial Cells None seen <5 /hpf Urine Bacteria None seen None Seen /hpf Urine Mucus Few None Seen Urine Glucose Normal Normal mg/dL Urine Opiates Screen Neg NEGATIVE Urine Fentanyl Screen Neg NEGATIVE Urine Barbiturates Screen Neg NEGATIVE Urine Phencyclidine Screen Neg NEGATIVE Urine Amphetamines Screen Neg NEGATIVE Urine Benzodiazepines Screen Neg NEGATIVE Urine Cocaine Screen Neg NEGATIVE Urine Cannabinoids Screen Pos NEGATIVE Test 02/01/24 19:00 02/01/24 17:53 02/01/24 16:56 Range/Units Troponin I High Sensitivity 44 </=54 ng/L Lactic Acid Level 1.9 0.4-2.0 mmol/L B-Type Natriuretic Peptide 98.10 0-100 pg/mL Lipase 70 H 12-53 U/L Plasma/Serum Blood Alcohol < 3.0 <10 mg/dL Microbiology Date/Time Source Procedure Growth Status 02/03/24 05:30 Nose MRSA Screen - Final Complete Assessment Chronic HFrEF with EF 20% NYHA class II Influenza type A Gastroenteritis LEXI likely VMN Cannabinoid abuse disorder Obesity type 1 Prediabetes Plan/Recommendation We will continue with the following plan/recommendations (Dr. Crawford): Echocardiogram showed severely dilated LV with EF 20% with a grade 1 diastolic dysfunction Guideline medical therapy as tolerated Hold Entresto, spironolactone due to given BP and renal function Risk factor modification, counseled Dietary changes Limiting sodium intake Strict INOs Maintaining fluid restriction, daily weight DVT/VTE prophylaxis Rest of the treatment as per orders Case discussed with Dr. Toledo, since patient is not in acute exacerbation, no urgent intervention needed at this time, we will schedule angiogram on outpatient once he is clinically stable. We are signing off, Thank you for allowing us inpatient care, reconsult if needed. Plan discussed with: Patient Visit Coding Cardiology RES Date of Service: Feb 03, 2024 Billing Provider: CINDI TOLEDO MD Cardiology Common Codes: [id number] INP/OBS CARE (Mod) DALJIT KAY RESIDENT Feb 03, 2024 15:40
[2024-02-04 01:00] VITALS: BP 116/71; PULSE 96; RESP 18; TEMP 97.9; O2SAT 93
[2024-02-04 05:00] VITALS: BP 97/62; PULSE 84; RESP 18; TEMP 98.5; O2SAT 93
[2024-02-04 06:16] LABS: Anion Gap 9 (5-15); Carbon Dioxide 24 mmol/L (20-31); Chloride 104 mmol/L (98-107); Sodium 137 mmol/L (136-145)
[2024-02-04 06:18] LABS: Calcium 9.3 mg/dL (8.7-10.4)
[2024-02-04 06:22] LABS: BUN/Creatinine Ratio 11.8 (10.0-20.0)
[2024-02-04 06:26] LABS: Blood Urea Nitrogen 8 mg/dL (9-23); Glucose 122 mg/dL (74-106); Potassium 3.4 mmol/L (3.5-5.1)
[2024-02-04 07:08] LABS: Basophils # (auto) 0 10 ^3/uL (0-0.2); Basophils % (auto) 0.4 % (0.0-2.0); Eosinophils # (auto) 0 10 ^3/uL (0-0.8); Eosinophils % (auto) 0.5 % (0.0-7.0); Hematocrit 40.3 % (41.0-53.0); Hemoglobin 13.9 g/dL (13.5-17.5); Mean Corpuscular Hemoglobin 31.9 pg (28.0-32.0); Mean Corpuscular Hgb Conc. 34.4 g/dL (32.0-36.0); Mean Corpuscular Volume 92.9 fL (80.0-100.0); Monocytes # (auto) 0.6 10 ^3/uL (0-1.3); Monocytes % (auto) 8.6 % (0.0-12.0); Neutrophils # (auto) 5.1 10 ^3/uL (1.6-8.6); Neutrophils % (auto) 75.5 % (37.0-80.0); Platelet Count (auto) 124 10^3/uL (140-450); Red Blood Cells 4.34 10^6/uL (4.5-5.90); Red Cell Distribution Width 13.2 % (11.8-14.3); White Blood Cell 6.8 10^3/uL (4.4-10.8)
[2024-02-04 08:10] VITALS: PULSE 79; RESP 16; O2SAT 92
[2024-02-04 09:00] VITALS: BP 96/64; PULSE 79; RESP 16; TEMP 98.1; O2SAT 92
[2024-02-04] MEDS ORDERED: guaiFENesin 200 MG/10 ML UD GT PRN (09:45)
[2024-02-04] MEDS: POTASSIUM EFFERVESENT TAB 25 MEQ PO ONE (09:52)
[2024-02-04] MEDS: EMPAGLIFLOZIN 10 MG TAB PO SCH (09:52)
[2024-02-04] MEDS ORDERED: TAMIFLU PO (09:54)
[2024-02-04] MEDS ORDERED: EMPA1TAB PO (09:54)
[2024-02-04] MEDS ORDERED: METO25TA36 PO (09:54)
[2024-02-04] MEDS ORDERED: METOPROLOL SUCCINATE XL 50 MG TAB PO SCH ×2 (10:00)
--- NOTE | 2024-02-04 10:19 | CONS ---
Pharmacy Clinical Information: CQM HF. Before starting EBBB, it should be noted that patient's BP was low h owever it seems to be improving at this time. There seems to be a plan to start metoprolol succinate once the patient is discharged and BP is stable. MANJINDER CUELLAR PHARMACIST Feb 04, 2024 10:19
[2024-02-04 12:32] VITALS: BP 101/62; PULSE 90; RESP 18; TEMP 98.4; O2SAT 98
[2024-02-04 13:32] VITALS: BP 101/62; PULSE 90; RESP 18; TEMP 98.4; O2SAT 98
[2024-02-04] MEDS: METOPROLOL SUCCINATE XL 50 MG TAB PO SCH (13:55)
--- NOTE | 2024-02-04 15:46 | DVHDSRES ---
Discharge Summary Date of Admission Resident Creating Document: PHILIP CORREIA RESIDENT Feb 02, 2024 at 07:40 Date of Discharge: Feb 04, 2024 Admitting Diagnosis Acute hypoxic respiratory failure due to influenza pneumonia Labs/Diagnostic Data: Laboratory Results Test 02/04/24 04:48 02/03/24 05:10 02/02/24 10:59 02/01/24 22:50 White Blood Count 6.8 10^3/uL (4.4-10.8) Red Blood Count 4.34 10^6/uL (4.5-5.90) Hemoglobin 13.9 g/dL (13.5-17.5) Hematocrit 40.3 % (41.0-53.0) Mean Corpuscular Volume 92.9 fL (80.0-100.0) Mean Corpuscular Hemoglobin 31.9 pg (28.0-32.0) Mean Corpuscular Hemoglobin Concent 34.4 g/dL (32.0-36.0) Red Cell Distribution Width 13.2 % (11.8-14.3) Platelet Count 124 10^3/uL (140-450) Mean Platelet Volume 11.2 fL (6.9-10.8) Neutrophils (%) (Auto) 75.5 % (37.0-80.0) Lymphocytes (%) (Auto) 15.0 % (10.0-50.0) Monocytes (%) (Auto) 8.6 % (0.0-12.0) Eosinophils (%) (Auto) 0.5 % (0.0-7.0) Basophils (%) (Auto) 0.4 % (0.0-2.0) Neutrophils # (Auto) 5.1 10 ^3/uL (1.6-8.6) Lymphocytes # (Auto) 1.0 10 ^3/uL (0.4-5.4) Monocytes # (Auto) 0.6 10 ^3/uL (0-1.3) Eosinophils # (Auto) 0 10 ^3/uL (0-0.8) Basophils # (Auto) 0 10 ^3/uL (0-0.2) Nucleated Red Blood Cells 0.0 % Sodium Level 137 mmol/L (136-145) Potassium Level 3.4 mmol/L (3.5-5.1) Chloride Level 104 mmol/L (98-107) Carbon Dioxide Level 24 mmol/L (20-31) Anion Gap 9 (5-15) Blood Urea Nitrogen 8 mg/dL (9-23) Creatinine 0.68 mg/dL (0.700-1.30) Glomerular Filtration Rate Calc 109 mL/min (>90) BUN/Creatinine Ratio 11.8 (10.0-20.0) Serum Glucose 122 mg/dL (74-106) Calcium Level 9.3 mg/dL (8.7-10.4) Total Bilirubin 0.4 mg/dL (0.2-1.0) Aspartate Amino Transferase (AST) 29 U/L (13-40) Alanine Aminotransferase (ALT) 18 U/L (7-40) Alkaline Phosphatase 72 U/L (46-116) Total Protein 6.2 g/dL (5.7-8.2) Albumin 3.9 g/dL (3.2-4.8) Hemoglobin A1c 6.2 % A1C (<5.7) Magnesium Level 1.8 mg/dL (1.6-2.6) Triglycerides Level 116 mg/dL (< 150) Cholesterol Level 109 mg/dL (< 200) LDL Cholesterol 66 mg/dL (< 100) HDL Cholesterol 27 mg/dL (40-59) Vitamin B12 Level 324 pg/mL (211-911) Vitamin D 25-Hydroxy 18.2 ng/mL (30.0-100) Thyroid Stimulating Hormone (TSH) 1.07 uIU/mL (0.55-4.78) Influenza Type A Antigen Positive (Negative) Influenza Type B Antigen Negative (Negative) SARS-CoV-2 Antigen (Rapid) Negative (NEGATIVE) Test 02/01/24 22:44 02/01/24 19:00 02/01/24 17:53 02/01/24 16:56 Urine Color Yellow (Yellow) Urine Clarity Clear (Clear) Urine pH 5.5 (5.0-9.0) Urine Specific [place] 1.031 (1.001-1.035) Urine Protein 1+ (Negative) Urine Ketones Trace (Negative) Urine Blood Negative /uL (Negative) Urine Nitrite Negative (Negative) Urine Bilirubin Negative (Negative) Urine Urobilinogen 2 mg/dL (Negative) Urine Leukocyte Esterase Negative /uL (Negative) Urine RBC 2 /hpf (0 - 3) Urine WBC 2 /hpf (0 - 3) Urine Squamous Epithelial Cells None seen /hpf (<5) Urine Bacteria None seen /hpf (None Seen) Urine Mucus Few (None Seen) Urine Glucose Normal mg/dL (Normal) Urine Opiates Screen Neg (NEGATIVE) Urine Fentanyl Screen Neg (NEGATIVE) Urine Barbiturates Screen Neg (NEGATIVE) Urine Phencyclidine Screen Neg (NEGATIVE) Urine Amphetamines Screen Neg (NEGATIVE) Urine Benzodiazepines Screen Neg (NEGATIVE) Urine Cocaine Screen Neg (NEGATIVE) Urine Cannabinoids Screen Pos (NEGATIVE) Troponin I High Sensitivity 44 ng/L (</=54) Lactic Acid Level 1.9 mmol/L (0.4-2.0) B-Type Natriuretic Peptide 98.10 pg/mL (0-100) Lipase 70 U/L (12-53) Plasma/Serum Blood Alcohol < 3.0 mg/dL (<10) Other Laboratory Tests 02/04/24 04:48 Brief Hx & Hospital Course: HPI: 58-year-old male patient with past medical history of heart failure with reduced ejection fraction who presented with the abdominal pain for the past 6 days associated with productive clear-whitish sputum coughing episodes. The pain was described as [id number] in intensity 3/10, associated with nausea and vomiting. The patient reported noticing blood in his vomit but denied diarrhea, hematochezia or melena. He also endorsed dry mouth but denied fever chills or weight loss. The patient has a history of recent hospitalization 2 weeks ago for shortness of breaths. Hospital course: Initial evaluation revealed elevated lipase levels, and serology test were positive for influenza type a for which the patient was started on oseltamivir 75 mg p.o.. The echocardiogram revealed reduced ejection fraction of 20% consistent with the heart failure reduced ejection fraction, patient was started on Jardiance 10 mg p.o. and metoprolol XL. 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 The patient expressed plans to relocate to [facility] to stay with a friend. Transportation was arranged via over to friend's house upon discharge. Condition at discharge: Patient reports feeling better with reduced symptoms of nausea and vomiting, he was recommended to follow up with Cardiology in 2 weeks and PCP in 2 weeks. Case discussed with Dr. Brizuela Goals of care discussed with the patient for 32 minutes Code status: Full code Consults/Reason for consult Cardiology: Severely reduced ejection fraction 20 % HF Operations or Procedures [address] [address] Ph: [phone] DIAGNOSTIC IMAGING Diagnostic Imaging Report : [id number] Signed PATIENT: DAGMAR DEL CID ACCT: [id number] UNIT: [id number] : 1965 LOC: ER ROOM / BED: / AGE / SEX: 58 / M ADM STATUS: REG ER SERVICE 1609 ORDERING PHYSICIAN: CHETAN FULTON DO PROCEDURE(s): CXRP - CHEST PORTABLE REASON: sob ORDER NUMBER(s): [id number], ACCESSION NUMBER(s): [id number] CHEST RADIOGRAPH Indication: sob Technique: Single frontal view of the chest was obtained Comparison: None FINDINGS: Lines and Tubes: None Lungs: No focal consolidation. Pleura: No effusion. No pneumothorax. Cardiomediastinal contours: Unremarkable Bones: No acute osseous abnormality. IMPRESSION: No acute cardiopulmonary disease. ATED BY: BINH RAMSAY MD DICTATED DATE/TIME: 02/01/241742 SIGNED BY: BINH RAMSAY MD SIGNED DATE/TIME: 02/01/241742 CC: [address] [address] Ph: [phone] DIAGNOSTIC IMAGING Diagnostic Imaging Report : [id number] Signed PATIENT: DAGMAR DEL CID ACCT: [id number] UNIT: [id number] : 1965 LOC: ER ROOM / BED: / AGE / SEX: 58 / M ADM STATUS: REG ER SERVICE 1618 ORDERING PHYSICIAN: CHETAN FULTON DO PROCEDURE(s): ABPL - CT AB PEL WO CON-NO ORAL OR IV REASON: n/v ORDER NUMBER(s): [id number], ACCESSION NUMBER(s): [id number] Exam: CT CT AB PEL WO CON-NO ORAL OR IV History: n/v Comparison Study: None TECHNIQUE: Multidetector CT of the abdomen and pelvis was performed from lung bases to pubic symphysis. Imaging was performed without IV contrast. Axial, coronal, and sagittal multiplanar reformats were obtained from the axial data set by the technologist. RADIATION DOSE: DLP 1136.2 mGy.cm; CTDI vol 20.83 mGy. Findings: Limited evaluation given noncontrast technique. Lungs: The lung bases are clear. Heart: Cardiomegaly. Liver: Unremarkable. Gallbladder: Unremarkable. Spleen: Unremarkable Pancreas: Unremarkable Adrenals: Unremarkable Kidneys: Right renal cysts. GI tract: Unremarkable. Normal appendix. : Unremarkable. Vasculature: Unremarkable Lymphadenopathy: Absent Peritoneum: No ascites Musculoskeletal: Moderate multilevel degenerative changes of the thoracolumbar spine Soft tissues: Unremarkable Impression: 1. Limited evaluation given noncontrast technique. 2. No acute abdominopelvic abnormalities. 3. Cardiomegaly. ATED BY: CNITHIA NEWBY DO DICTATED DATE/TIME: 02/01/241748 SIGNED BY: CINTHIA NEWBY DO SIGNED DATE/TIME: 02/01/241748 CC: [place] [address] Ph: [phone] DIAGNOSTIC IMAGING Diagnostic Imaging Report : [id number] Signed PATIENT: DAGMAR DEL CID ACCT: [id number] UNIT: [id number] : 1965 LOC: ER ROOM / BED: / AGE / SEX: 58 / M ADM STATUS: REG ER SERVICE 1636 ORDERING PHYSICIAN: CHETAN FULTON DO PROCEDURE(s): HWOCT - HEAD WITHOUT CONTRAST REASON: confused ORDER NUMBER(s): [id number], ACCESSION NUMBER(s): [id number] EXAM: CT HEAD WITHOUT CONTRAST INDICATION: confused TECHNIQUE: CT of the head without intravenous contrast. Radiation Dose Information: CT Dose: CTDI volume is 57.77 mGy. Dose-length product is 1022.89 mGy*cm The dose indicators for CT are the volume Computed Tomography (CT) Dose Index (CTDIvol) and the Dose Length Product (DLP), and are measured in units of mGy and mGy-cm, respectively. These indicators are not patient dose, but values generated from the CT scanner acquisition factors. The report includes radiation exposure data for exposures received during this examination. COMPARISON: None FINDINGS: There is no evidence of acute intracranial hemorrhage, extra-axial collection, mass effect, midline shift, herniation or hydrocephalus. The ventricles, sulci and cisterns are age appropriate. The maxwell-white differentiation is intact. Patchy periventricular and subcortical white matter hypoattenuation is nonspecific but may be related to small vessel ischemic disease. Encephalomalacia right frontal lobe and left parietal lobe. The visualized paranasal sinuses and mastoid air cells are clear. The surrounding soft tissues and osseous structures are unremarkable. IMPRESSION: No acute intracranial abnormality. ATED BY: BINH RAMSAY MD DICTATED DATE/TIME: 02/01/241742 SIGNED BY: BINH RAMSAY MD SIGNED DATE/TIME: 02/01/241742 CC: Condition at Discharge: Fair Final Diagnosis/Problems List Acute abdominal pain likely due to Gastroenteritis likely viral Heart failure reduced ejection fraction 20% NYHA II Mild hypotension, resolved influenza infection, acute viral syndrome - influenza A + Dehydration likely due to intractable diarrhea LEXI due to VMN - Cr 1.3 likely due to dehydration Prediabetes, hemoglobin A1c 6.2 Homelessness Obesity type 1 Cannabinoid abuse disorder Discharge Disposition: Home SNF Discharge Will this Physician continue t: No Discharge Instruct/Medications Diet: Cardiac 2g Na,low cholest Activity: No Restrictions, As Tolerated Follow Up/Referral: jardiance 10 mg PO Metoprolol 25 MG po once a day Discharge Statement: "Patient was advised to return to the ER or call 911 if any headaches, dizziness, shortness of breath, chest pain, abdominal pain, bleeding, fevers, or worsening of medical condition. Patient was counseled about treatment plan, medications, possible side effects, patientverbalized understanding. All questions were answered to the best of my ability. This discharge took greater then 30 minutes in planning, reviewing documentation, counseling the patient, and discussing with other team members." ASSESSMENT ASSESSMENT Assessment - acute hypoxic respiratory failure due to viral pneumonia - severely reduced heart failure; reduced ejection fraction Date of Service: Feb 04, 2024 Billing Provider: HALI BRIZUELA MD Common Visit Codes: 24414-LMB/OBS DISCH DAY >30min PHILIP CORREIA RESIDENT Feb 04, 2024 15:46 HALI BRIZUELA MD Feb 04, 2024 20:41
--- NOTE | 2024-02-12 13:59 | ECG ---
[facility] Test Date: 2024-02-03 Test Time: 15:31:53 Pat Name: DAGMAR DONNER Department: Respiratoy Room: 0207 A Gender: M Screw Machine Hand: TIANNA : 1965 Requested By: CHETAN FULTON Order Number: [id number] Reading MD: Deanna Rose Measurements Intervals [place] Rate: 92 P: 58 ND: 172 QRS: -2 QRSD: 109 T: 126 QT: 362 QTc: 448 Interpretive Statements Sinus rhythm Ventricular premature complex Incomplete left bundle branch block Repolarization abnormalities suggest anterolateral ischemia Consider LVH Electronically Signed On 02-12-2024 18:46:34 PST by Deanna Rose Please click the below link to view image of tracing.
== END 2024-02-04 14:50 | disposition home or self-care (01) | DRG 133 ==
LOC: ER 15:10 → EDBD 15:10 → OVERFLOW 02-02 07:40 → CENTRAL 02-02 17:37
PROVIDERS: ADMIT Internal Medicine Geriatric Medicine; ATTEND Emergency Medicine
DX: J96.01 Acute respiratory failure with hypoxia (principal); N17.0 Acute kidney failure with tubular necrosis; J10.00 Influenza due to other identified influenza virus with unspecified type of pneumonia; I50.43 Acute on chronic combined systolic (congestive) and diastolic (congestive) heart failure; I95.9 Hypotension, unspecified; E86.0 Dehydration; J12.9 Viral pneumonia, unspecified; A08.4 Viral intestinal infection, unspecified; Z20.822 Contact with and (suspected) exposure to COVID-19; R26.81 Unsteadiness on feet; F12.10 Cannabis abuse, uncomplicated; R73.03 Prediabetes; E66.9 Obesity, unspecified; Z59.00 Homelessness unspecified; Z68.32 Body mass index [BMI] 32.0-32.9, adult
CPT/HCPCS: 36415; 70450; 71045; 74176; 80048; 80053; 80061; 80307; 80320; 81001; 82306; 82607; 83036; 83605; 83690; 83735; 83880; 84443; 84484; 85025; 86850; 86900; 86901; 87081; 87426; 87804; 93306; 96372; G0378